=== PATIENT | female | born 1995 | race Two or more races ===

== ENCOUNTER 2022-11-17 14:50 | Emergency (ER) | payer OTHER ==
[~2022-11-17] VITALS: Ht 165.1 cm; Wt 71.7 kg
[2022-11-17] MEDS ORDERED: CENTRUM ADULT120 MCG PO (15:18)
[2022-11-17 18:52] LABS: HEMATOCRIT 37.8 % (36.0-45.00); HEMOGLOBIN 12.6 g/dL (12.0-15.00); MEAN CELL VOLUME 83.4 fL (80.00-100.00); MEAN CORPUSCULAR HEMOGLOBIN 27.8 pg (27.00-32.0); MEAN CORPUSCULAR HGB CONC 33.4 g/dl (32.0-36.0); PLATELET COUNT 354 K/uL (150-450); RED BLOOD COUNT 4.53 M/uL (4.00-6.00); RED CELL DISTRIBUTION WIDTH 14.1 % (11.5-14.5)
== END 2022-11-17 19:30 | disposition home or self-care (01) ==
LOC: ER 14:51
PROVIDERS: General Practice
DX: L03.031 Cellulitis of right toe (principal)